=== PATIENT | female | born 1945 | race Two or more races ===

== ENCOUNTER 2021-10-31 11:47 | Outpatient (REF) | payer MEDICARE, SELFPAY ==
[2021-10-31 12:13] LABS: MANUAL DIFF FLAG NO
[2021-10-31 12:19] LABS: Basophils Percent Auto 0.5 % (0-2); Eosinophils Percent Auto 0.1 % (0-4); Hematocrit 38.3 % (37.0-47.0); Hemoglobin 12.9 g/dl (12.0-16.0); Imm Gran Abs Auto 0.03 X10*3/uL (0.00-0.03); Imm Gran Pct Auto 0.4 % (0.0-0.4); Lymphocytes Absolute Auto 0.7 X10*3/uL (1.2-4.9); Lymphocytes Percent Auto 8.2 % (20-40); Mean Corpuscular HGB Conc 33.7 g/dl (31.0-35.0); Mean Corpuscular Hemoglobin 32.3 pg (27.0-33.0); Mean Corpuscular Volume 95.8 fL (80.0-98.0); Mean Platelet Volume 10.2 fL (9.4-12.3); Monocytes Absolute Auto 0.6 X10*3/uL (0.1-1.2); Monocytes Percent Auto 7.2 % (2-11); Neutrophils Absolute Auto 6.7 x10*3/uL (2.0-8.3); Neutrophils Percent Auto 83.6 % (45-73); Platelet Count 266 X10*3/uL (160-400); Red Cell Distribution Width 11.9 % (11.0-16.0); White Blood Count 8.1 X10*3/uL (4.8-10.8)
[2021-10-31 13:13] LABS: Alanine Aminotransferase 10 U/L (0-31); Albumin Level 4.3 g/dL (3.5-5.0); Alkaline Phosphatase 87 U/L (39-117); Anion Gap 12 (12-20); Aspartate Amino Transferase 19 U/L (5-31); Bilirubin Total 0.9 mg/dL (0.0-1.0); Blood Urea Nitrogen 27 mg/dL (9-16); Calcium 10.4 mg/dL (8.4-10.2); Carbon Dioxide 26 mmol/L (22-29); Chloride 106 mmol/L (96-108); Cholesterol 127 mg/dL; Estimated Glomerular Filt Rate > 60; Glucose Random 97 mg/dL (60-115); HDL Cholesterol 46 mg/dL; LDL Cholesterol Calculated 67 mg/dl; Potassium 4.3 mmol/L (3.3-5.1); Sodium 140 mmol/L (135-145); Total Protein 7.3 g/dL (6.5-8.0); Triglycerides 70 mg/dL
[2021-10-31 13:40] LABS: Thyroid Stimulating Hormone 0.78 uIU/mL (0.32-4.0)
== END 2021-10-31 11:48 | disposition home or self-care (01) ==
LOC: HO.LAB 11:47
PROVIDERS: PCP Internal Medicine; Visit Provider Internal Medicine
DX: E78.00 Pure hypercholesterolemia, unspecified (principal); F03.91 Unspecified dementia, unspecified severity, with behavioral disturbance; I10 Essential (primary) hypertension; M54.50 Low back pain, unspecified
CPT/HCPCS: 36415; 80053; 80061; 84443; 85025

== ENCOUNTER 2022-01-09 08:59 | Outpatient (REF) | payer MEDICARE, MEDICAID, SELFPAY ==
--- NOTE | ~2022-01-09 | US_ITS ---
EXAMINATION: US ABDOMEN COMPLETE CLINICAL INFORMATION: Right upper quadrant pain. Rule out cholecystitis. COMPARISON: None TECHNIQUE: Real-time imaging of the abdominal viscera. FINDINGS: PANCREAS: The pancreas is homogeneous in echotexture and normal size. The pancreatic duct is slightly prominent measuring 0.3 cm. ABDOMINAL AORTA: Mild atherosclerotic calcified plaques are seen along the abdominal aorta without aneurysmal dilatation. INFERIOR VENA CAVA: Visualized portions are normal. LIVER: The liver is normal in size. The liver contour is normal. Parenchymal echogenicity is heterogeneous. No focal hepatic lesion. There is no intrahepatic biliary duct dilatation seen. GALLBLADDER: Normal. The gallbladder is physiologically distended without evidence of stones, sludge, polyps, wall thickening or pericholecystic fluid. COMMON BILE DUCT: Normal in caliber measuring 0.4 cm in diameter. RIGHT KIDNEY: Normal. No hydronephrosis. No renal calculi or focal parenchymal lesions. The kidney measures 8.8 cm in maximum dimension. LEFT KIDNEY: There is an anechoic cyst in the upper pole measuring 1.7 x 1.6 x 1.3 cm. No hydronephrosis or renal calculi. The kidney measures 9.5 cm in maximum dimension. SPLEEN: Normal. The spleen measures 6.9 cm in maximum dimension. FREE FLUID: None. US/US abdomen complete IMPRESSION: Mild hepatic steatosis without focal lesion. Anechoic cyst upper pole left kidney. The rest of the abdominal ultrasound is unremarkable.
== END 2022-01-09 09:00 | disposition home or self-care (01) ==
LOC: HO.US 08:59
PROVIDERS: Visit Provider Internal Medicine
DX: K81.9 Cholecystitis, unspecified (principal)
CPT/HCPCS: 76700

== ENCOUNTER 2022-06-18 09:54 | Outpatient (REF) | payer MEDICARE, SELFPAY ==
[2022-06-18 11:42] LABS: Vitamin D 25-OH Total 37.7 ng/mL (>30)
[2022-06-21 17:47] LABS: PTHI 98 pg/mL (16-77)
== END 2022-06-18 09:55 | disposition home or self-care (01) ==
LOC: HO.10HDL 09:54
PROVIDERS: Visit Provider Internal Medicine
DX: E83.52 Hypercalcemia (principal); I10 Essential (primary) hypertension; M54.50 Low back pain, unspecified
CPT/HCPCS: 36415; 82306; 82310; 83970

== ENCOUNTER 2023-01-21 10:04 | Outpatient (REF) | payer MEDICARE, MEDICAID, SELFPAY ==
[2023-01-21 10:20] LABS: MANUAL DIFF FLAG NO
[2023-01-21 10:44] LABS: Basophils Absolute Auto 0.1 X10*3/uL (0.0-0.2); Basophils Percent Auto 0.7 % (0-2); Eosinophils Absolute Auto 0.3 X10*3/uL (0.0-0.4); Eosinophils Percent Auto 3.9 % (0-4); Hematocrit 38.8 % (37.0-47.0); Hemoglobin 12.8 g/dl (12.0-16.0); Imm Gran Abs Auto 0.01 X10*3/uL (0.00-0.03); Imm Gran Pct Auto 0.1 % (0.0-0.4); Lymphocytes Percent Auto 28.6 % (20-40); Mean Corpuscular Hemoglobin 30.6 pg (27.0-33.0); Mean Corpuscular Volume 92.8 fL (80.0-98.0); Mean Platelet Volume 10.7 fL (9.4-12.3); Monocytes Absolute Auto 0.6 X10*3/uL (0.1-1.2); Neutrophils Percent Auto 57.7 % (45-73); Platelet Count 303 X10*3/uL (160-400); Red Blood Count 4.18 X10*6/uL (4.20-5.50); Red Cell Distribution Width 11.9 % (11.0-16.0)
[2023-01-21 11:13] LABS: Alanine Aminotransferase 11 U/L (0-31); Albumin Level 4.2 g/dL (3.5-5.0); Alkaline Phosphatase 118 U/L (39-117); Anion Gap 12 (12-20); Aspartate Amino Transferase 17 U/L (5-31); Bilirubin Total 0.5 mg/dL (0.0-1.0); Blood Urea Nitrogen 25 mg/dL (9-16); Calcium 9.9 mg/dL (8.4-10.2); Carbon Dioxide 27 mmol/L (22-29); Chloride 109 mmol/L (96-108); Cholesterol 117 mg/dL; Estimated Glomerular Filt Rate 43; Glucose Random 88 mg/dL (60-115); HDL Cholesterol 39 mg/dL; LDL Cholesterol Calculated 64 mg/dl; Potassium 3.9 mmol/L (3.3-5.1); Sodium 144 mmol/L (135-145); Total Protein 7.6 g/dL (6.5-8.0); Triglycerides 71 mg/dL
[2023-01-21 11:32] LABS: Thyroid Stimulating Hormone 1.36 uIU/mL (0.32-4.0)
[2023-01-23 18:58] LABS: PTHI 94 pg/mL (16-77)
== END 2023-01-21 10:05 | disposition home or self-care (01) ==
LOC: HO.LAB 10:04
PROVIDERS: PCP Internal Medicine; Visit Provider Internal Medicine
DX: E83.52 Hypercalcemia (principal); F02.80 Dementia in other diseases classified elsewhere, unspecified severity, without behavioral disturbance, psychotic disturbance, mood disturbance, and anxiety; I10 Essential (primary) hypertension; M54.50 Low back pain, unspecified
CPT/HCPCS: 36415; 80053; 80061; 83970; 84443; 85025

== ENCOUNTER → 2023-02-21 13:15 | Outpatient (BNV) | payer MEDICARE, MEDICAID, SELFPAY | PROVIDERS: PCP Internal Medicine; Visit Provider Radiology Diagnostic Radiology | DX: Z12.31 Encounter for screening mammogram for malignant neoplasm of breast (principal) | CPT/HCPCS: 77063; 77067 ==

== ENCOUNTER 2023-02-21 13:25 | Outpatient (REF) | payer MEDICARE, MEDICAID, SELFPAY ==
--- NOTE | ~2023-02-21 | MM_ITS ---
EXAMINATION: MM SCREENING DIGITAL BREAST TOMOSYNTHESIS, BILATERAL CLINICAL INFORMATION: Screening. Asymptomatic. COMPARISON: Mammography: This is a baseline study. TECHNIQUE: Digital breast tomosynthesis is performed in both the craniocaudal and mediolateral oblique views along with computer-aided detection (CAD). Synthesized 2D images are generated from the tomosynthesis. FINDINGS: The breasts are almost entirely fatty (ACR BI-RADS breast composition Category a). There are no significant masses, abnormal calcifications, or other abnormalities. MM/MM tomosynthesis screening BI IMPRESSION: No mammographic evidence of malignancy. ASSESSMENT: BI-RADS BI-RADS 1 - Negative RECOMMENDATION: Routine annual mammography screening. 1 year F/U This examination should not preclude the clinical evaluation of a suspicious palpable abnormality. This patient's information was entered into a reminder system with a target due date for their next mammogram.
== END 2023-02-21 13:26 | disposition home or self-care (01) ==
LOC: HO.MAMMO 13:25
PROVIDERS: PCP Internal Medicine; Visit Provider Internal Medicine
DX: Z12.31 Encounter for screening mammogram for malignant neoplasm of breast (principal)
CPT/HCPCS: 77063; 77067

== ENCOUNTER 2023-10-17 11:15 | Outpatient (REF) | payer MEDICARE, MEDICAID, SELFPAY ==
[2023-10-17 12:24] LABS: Alanine Aminotransferase 14 U/L (0-31); Albumin Level 4.4 g/dL (3.5-5.0); Alkaline Phosphatase 111 U/L (39-117); Anion Gap 9 (12-20); Aspartate Amino Transferase 19 U/L (5-31); Bilirubin Total 0.5 mg/dL (0.0-1.0); Blood Urea Nitrogen 22 mg/dL (9-16); Calcium 10.4 mg/dL (8.4-10.2); Carbon Dioxide 27 mmol/L (22-29); Chloride 110 mmol/L (96-108); Estimated Glomerular Filt Rate 54; Glucose Random 94 mg/dL (60-115); Potassium 3.9 mmol/L (3.3-5.1); Sodium 142 mmol/L (135-145); Total Protein 7.7 g/dL (6.5-8.0)
[2023-10-17 12:41] LABS: Vitamin D 25-OH Total 39.5 ng/mL (>30)
[2023-10-17 17:20] LABS: Parathyroid Hormone Intact 88.5 pg/mL (8.7-77.1)
== END 2023-10-17 11:16 | disposition home or self-care (01) ==
LOC: HO.LAB 11:15
PROVIDERS: PCP Internal Medicine; Visit Provider Internal Medicine
DX: E78.00 Pure hypercholesterolemia, unspecified (principal); I12.9 Hypertensive chronic kidney disease with stage 1 through stage 4 chronic kidney disease, or unspecified chronic kidney disease; N18.2 Chronic kidney disease, stage 2 (mild); R29.6 Repeated falls
CPT/HCPCS: 36415; 80053; 82306; 83970

== ENCOUNTER 2023-11-28 10:58 | Outpatient (AMB) | payer MEDICARE, MEDICAID, SELFPAY ==
--- NOTE | 2023-11-28 11:15 | MHC.OFFVIS ---
Vital Signs 11/28/23 11:27 Height 5 ft 1 in Weight 138 lb BMI 26.1 BP 124/80 Intake Visit Reasons: 2nd degree uterine prolapse Mainframe Applications Developer Required: No Information Interpreted: non-clinical & clinical Supervisor Microbiology Technologists: Supervisor Microbiology Technologists Present (Tamika CLEARY) Accompanied by: Daughter Allergies shellfish derived Allergy (Intermediate, Verified 11/28/23 11:29) Anaphylaxis Post menopausal: Yes HPI Comments Details: Presenting complaining of a bulge per vagina over the last many years , no urine incontinence. [facility] Medical History Hyperlipidemia HTN (hypertension) Dementia Surgical History History of intestinal surgery H/O breast biopsy History of throat surgery Family History Father HTN (hypertension) Prostate cancer Mother Diabetes Breast cancer Sister Tongue cancer Social History Household Members: Family Household Members Other:: daughter Housing: House Alcohol intake: never Patient Tobacco Use Status: Former Tobacco user Tobacco use type: Cigarette Years Smoked: 30 Current occupational status: retired Sexual orientation: Straight/Heterosexual Gender identity: Female Female Reproductive History Menstrual Menopause type: natural Total pregnancies: 3 Full term: 3 Number of Living Children: 3 Review of Systems Const All systems reviewed & are unremarkable except as noted in HPI and below Physical Exam Vital Signs: Last Vital Signs BP 124/80 11/28/23 11:27 BMI result Body Mass Index 26.1 General: Yes no CVA tenderness External Female Exam: normal external appearance and normal appearance of the urethra Speculum Exam - Vagina: normal appearance of the vagina, normal palpation, no lesions and no masses Speculum Exam - Cervix: normal appearance of the cervix, normal palpation, no lesions, no masses, nontender and Other cervical findings present (Moderate uterine prolapse) Bimanual exam- vagina & uterus: normal bimanual exam, normal palpation, uterine size normal, normal palpation, uterine shape normal, No Cervical tenderness present, non-tender and other (Moderate uterine prolapse) Bimanual Exam- Adnexa, other: normal adnexae Back/Spine/Pelvis Back: no CVA tenderness Assessment & Plan Assessment & Plan (1) Uterine prolapse: Code(s): N81.4 - Uterovaginal prolapse, unspecified Category: Medical Plan: Discussed with the patient the finding on pelvic exam showing moderate uterine prolapse. Options of treatment discussed with the patient included expectant management, pessary or surgical treatment. All questions answered, the patient verbalized understanding and decided to go ahead with pessary trial. Will schedule an appointment for pessary trial within few days. Coding Level of Care Code New Pt Level 3 (29669) Diagnoses Uterine prolapse N81.4
[2023-11-28 11:27] VITALS: BP 124/80; BMI 26.1
== END 2023-11-28 13:07 | disposition home or self-care (01) ==
PROVIDERS: PCP Internal Medicine; Visit Provider Obstetrics & Gynecology
DX: N81.4 Uterovaginal prolapse, unspecified (principal)
CPT/HCPCS: 99203

== ENCOUNTER → 2023-11-28 10:58 | Outpatient (BNVA) | payer MEDICARE, MEDICAID, SELFPAY | PROVIDERS: PCP Internal Medicine; Visit Provider Obstetrics & Gynecology | DX: N81.4 Uterovaginal prolapse, unspecified (principal) | CPT/HCPCS: 99202 ==

== ENCOUNTER 2023-12-02 10:04 | Outpatient (AMB) | payer MEDICARE, MEDICAID, SELFPAY ==
[2023-12-02 10:31] VITALS: BP 112/64; BMI 26.1
--- NOTE | 2023-12-02 10:31 | A.OFFVIS_ITS ---
Vital Signs 12/02/23 10:31 Height 5 ft 1 in Weight 138 lb BMI 26.1 BP 112/64 Blood Pressure Location Lt brachial Position Sitting Intake Visit Reasons: pessary Allergies shellfish derived Allergy (Intermediate, Verified 12/02/23 10:34) Anaphylaxis HPI Comments Details: Presenting for pessary trial [facility] Medical History Hyperlipidemia HTN (hypertension) Dementia Surgical History History of intestinal surgery H/O breast biopsy History of throat surgery Family History Father HTN (hypertension) Prostate cancer Mother Diabetes Breast cancer Sister Tongue cancer Social History Household Members: Family Household Members Other:: daughter Housing: House Alcohol intake: never Patient Tobacco Use Status: Former Tobacco user Tobacco use type: Cigarette Years Smoked: 30 Current occupational status: retired Sexual orientation: Straight/Heterosexual Gender identity: Female Physical Exam Vital Signs: Last Vital Signs BP 112/64 12/02/23 10:31 BMI result Body Mass Index 26.1 External Female Exam: normal external appearance Speculum Exam - Vagina: normal appearance of the vagina Speculum Exam - Cervix: normal appearance of the cervix and Other cervical findings present (Moderate uterine prolapse) Bimanual exam- vagina & uterus: normal bimanual exam Assessment & Plan Assessment & Plan (1) Uterine prolapse: Code(s): N81.4 - Uterovaginal prolapse, unspecified Category: Medical Plan: Ring pessary #3 inserted in the vagina. Afterwards the pt did not feel it in, and did not have any pain or pressure. After Valsalva x 3 ( lying down, sitting and standing up ) pessary stayed in and pt was able to void freely with the pessary in the vagina. At the end the patient was instructed to come back in 24 hours, then in 3 days and then in 1 week for a f/u visits. Meanwhile the patient was instructed to call if vaginal pain, pressure or discharge occurs. Vaginal Trimosan Gel is to be used x2-3 x/week. The patient verbalized understanding and all questions were answered. Coding Level of Care Code Est Pt Level 3 (42479) Diagnoses Uterine prolapse N81.4
== END 2023-12-02 11:17 | disposition home or self-care (01) ==
LOC: HO.HWS 10:05
PROVIDERS: PCP Internal Medicine; Visit Provider Obstetrics & Gynecology
DX: N81.4 Uterovaginal prolapse, unspecified (principal)
CPT/HCPCS: 99213

== ENCOUNTER → 2023-12-02 10:04 | Outpatient (BNVA) | payer MEDICARE, MEDICAID, SELFPAY | PROVIDERS: PCP Internal Medicine; Visit Provider Obstetrics & Gynecology | DX: N81.4 Uterovaginal prolapse, unspecified (principal) | CPT/HCPCS: 99212 ==

== ENCOUNTER 2023-12-03 09:20 | Outpatient (AMB) | payer MEDICARE, MEDICAID, SELFPAY ==
--- NOTE | 2023-12-03 09:35 | MHC.OFFVIS ---
Vital Signs 12/03/23 09:38 Height 5 ft 1 in Weight 136 lb 10.986 oz BMI 25.8 Intake Visit Reasons: Pessary check Agricultural Produce Washer Required: No Information Interpreted: non-clinical & clinical Programming Coordinator: Programming Coordinator Present (Tamika CLEARY) Accompanied by: Daughter Allergies shellfish derived Allergy (Intermediate, Verified 12/03/23 09:38) Anaphylaxis Post menopausal: Yes HPI Comments Details: The patient is presenting for pessary check no complaints no vaginal pain, discharge or pressure. The pessary did not slip out. [facility] Medical History Hyperlipidemia HTN (hypertension) Dementia Surgical History History of intestinal surgery H/O breast biopsy History of throat surgery Family History Father HTN (hypertension) Prostate cancer Mother Diabetes Breast cancer Sister Tongue cancer Social History Household Members: Family Household Members Other:: daughter Housing: House Alcohol intake: never Patient Tobacco Use Status: Former Tobacco user Tobacco use type: Cigarette Years Smoked: 30 Current occupational status: retired Sexual orientation: Straight/Heterosexual Gender identity: Female Review of Systems Const All systems reviewed & are unremarkable except as noted in HPI and below Physical Exam Vital Signs: BMI result Body Mass Index 25.8 General: Yes no CVA tenderness External Female Exam: normal external appearance and normal appearance of the urethra Speculum Exam - Vagina: normal appearance of the vagina, normal palpation, no lesions, no masses and other (No evidence of abrasion erythema or any other abnormalities) Speculum Exam - Cervix: normal appearance of the cervix, normal palpation, no lesions, no masses and nontender Bimanual exam- vagina & uterus: normal bimanual exam, normal palpation, uterine size normal, normal palpation, uterine shape normal, No Cervical tenderness present, non-tender and other (Uterine prolapse) Bimanual Exam- Adnexa, other: normal adnexae Back/Spine/Pelvis Back: no CVA tenderness Assessment & Plan Assessment & Plan (1) Pessary maintenance: Code(s): Z46.89 - Encounter for fitting and adjustment of other specified devices Category: Medical Plan: Pessary was taken out; pelvic exam revealed normal findings no evidence of erythema, pressure or any other abnormal finding. The pessary was replaced back in, it did not slip out after Valsalva in the supine, sitting, and standing position. Pt was instructed to call if vaginal pressure, pain or discharge occurs otherwise and to keep using Trimosan Gel 2-3 x/week. Follow-up in 3 days for another pessary check Coding Level of Care Code Est Pt Level 3 (18196) Diagnoses Pessary maintenance Z46.89
[2023-12-03 09:38] VITALS: BMI 25.8
== END 2023-12-03 09:57 | disposition home or self-care (01) ==
LOC: HO.HWS 09:20
PROVIDERS: PCP Internal Medicine; Visit Provider Obstetrics & Gynecology
DX: Z46.89 Encounter for fitting and adjustment of other specified devices (principal)
CPT/HCPCS: 99213

== ENCOUNTER → 2023-12-03 09:20 | Outpatient (BNVA) | payer MEDICARE, MEDICAID, SELFPAY | PROVIDERS: PCP Internal Medicine; Visit Provider Obstetrics & Gynecology | DX: Z46.89 Encounter for fitting and adjustment of other specified devices (principal) | CPT/HCPCS: 99212 ==

== ENCOUNTER 2023-12-06 07:48 | Outpatient (AMB) | payer MEDICARE, MEDICAID, SELFPAY ==
--- NOTE | 2023-12-06 08:14 | MHC.OFFVIS ---
Vital Signs 12/06/23 08:17 Height 5 ft 1 in Weight 136 lb 10.986 oz BMI 25.8 Intake Visit Reasons: pessary check per Pony Roll Finisher Required: No Information Interpreted: non-clinical & clinical Loan Workout Officer: Loan Workout Officer Present (Tamika Devon CLEARY) Accompanied by: Self / Same As Patient Allergies shellfish derived Allergy (Intermediate, Verified 12/06/23 08:17) Anaphylaxis Post menopausal: Yes HPI Comments Details: The patient is presenting for pessary check no complaints no vaginal pain, discharge or pressure. The pessary did not slip out. [facility] Medical History Hyperlipidemia HTN (hypertension) Dementia Surgical History History of intestinal surgery H/O breast biopsy History of throat surgery Family History Father HTN (hypertension) Prostate cancer Mother Diabetes Breast cancer Sister Tongue cancer Social History Household Members: Family Household Members Other:: daughter Housing: House Alcohol intake: never Patient Tobacco Use Status: Former Tobacco user Tobacco use type: Cigarette Years Smoked: 30 Current occupational status: retired Sexual orientation: Straight/Heterosexual Gender identity: Female Review of Systems Const All systems reviewed & are unremarkable except as noted in HPI and below Physical Exam Vital Signs: BMI result Body Mass Index 25.8 General: Yes no CVA tenderness External Female Exam: normal external appearance and normal appearance of the urethra Speculum Exam - Vagina: normal appearance of the vagina, normal palpation, no lesions, no masses and other (No erythema or evidence of abrasion or any other abnormality) Speculum Exam - Cervix: normal appearance of the cervix, normal palpation, no lesions, no masses and nontender Bimanual exam- vagina & uterus: normal bimanual exam, normal palpation, uterine size normal, normal palpation, uterine shape normal, No Cervical tenderness present and non-tender Bimanual Exam- Adnexa, other: normal adnexae Back/Spine/Pelvis Back: no CVA tenderness Assessment & Plan Assessment & Plan (1) Pessary maintenance: Code(s): Z46.89 - Encounter for fitting and adjustment of other specified devices Category: Medical Plan: Pessary was taken out; pelvic exam revealed normal findings no evidence of erythema, pressure or any other abnormal finding. The pessary was replaced back in, it did not slip out after Valsalva in the supine, sitting, and standing position. Pt was instructed to call if vaginal pressure, pain or discharge occurs otherwise and to keep using Trimosan Gel 2-3 x/week. Follow-up in 1 week for another pessary check Coding Level of Care Code Est Pt Level 3 (04171) Diagnoses Pessary maintenance Z46.89
[2023-12-06 08:17] VITALS: BMI 25.8
== END 2023-12-06 09:01 | disposition home or self-care (01) ==
LOC: HO.HWS 07:48
PROVIDERS: PCP Internal Medicine; Visit Provider Obstetrics & Gynecology
DX: Z46.89 Encounter for fitting and adjustment of other specified devices (principal)
CPT/HCPCS: 99213

== ENCOUNTER → 2023-12-06 07:48 | Outpatient (BNVA) | payer MEDICARE, MEDICAID, SELFPAY | PROVIDERS: PCP Internal Medicine; Visit Provider Obstetrics & Gynecology | DX: Z46.89 Encounter for fitting and adjustment of other specified devices (principal) | CPT/HCPCS: 99212 ==

== ENCOUNTER 2024-01-16 15:53 | Outpatient (REF) | payer MEDICARE, MEDICAID, SELFPAY ==
[2024-01-16 17:34] LABS: Phosphorus 3.4 mg/dL (2.7-4.5)
== END 2024-01-16 15:54 | disposition home or self-care (01) ==
LOC: HO.LAB 15:53
PROVIDERS: PCP Internal Medicine; Visit Provider Internal Medicine
DX: E21.0 Primary hyperparathyroidism (principal); F03.911 Unspecified dementia, unspecified severity, with agitation; J44.9 Chronic obstructive pulmonary disease, unspecified; M54.50 Low back pain, unspecified; N81.2 Incomplete uterovaginal prolapse; R32 Unspecified urinary incontinence
CPT/HCPCS: 36415; 82310; 84100; 87086; 87088; 87186

== ENCOUNTER 2024-05-13 09:14 | Outpatient (AMB) | payer MEDICARE, MEDICAID, SELFPAY ==
--- NOTE | 2024-05-13 09:16 | MHC.OFFVIS ---
Vital Signs 05/13/24 09:24 Height 5 ft 1 in Weight 136 lb 10.986 oz BMI 25.8 BP 120/84 Intake Visit Reasons: pessary check Engineering Aide Required: No Information Interpreted: non-clinical & clinical Alterations Workroom Clerk: Alterations Workroom Clerk Present (Tamika CLEARY) Accompanied by: Daughter Allergies shellfish derived Allergy (Intermediate, Verified 05/13/24 09:25) Anaphylaxis Post menopausal: Yes HPI Comments Details: The patient is presenting for pessary check no complaints no vaginal pain, discharge or pressure. The pessary did not slip out. [facility] Medical History Hyperlipidemia HTN (hypertension) Dementia Surgical History History of intestinal surgery H/O breast biopsy History of throat surgery Family History Father HTN (hypertension) Prostate cancer Mother Diabetes Breast cancer Sister Tongue cancer Social History Household Members: Family Household Members Other:: daughter Housing: House Alcohol intake: never Patient Tobacco Use Status: Former Tobacco user Tobacco use type: Cigarette Years Smoked: 30 Current occupational status: retired Sexual orientation: Straight/Heterosexual Gender identity: Female Review of Systems Const All systems reviewed & are unremarkable except as noted in HPI and below Physical Exam Vital Signs: Last Vital Signs BP 120/84 05/13/24 09:24 BMI result Body Mass Index 25.8 General: Yes no CVA tenderness External Female Exam: normal external appearance and normal appearance of the urethra Speculum Exam - Vagina: normal appearance of the vagina, normal palpation, no lesions and no masses Speculum Exam - Cervix: normal appearance of the cervix, normal palpation, no lesions, no masses and nontender Bimanual exam- vagina & uterus: normal bimanual exam, normal palpation, uterine size normal, normal palpation, uterine shape normal, No Cervical tenderness present and non-tender Bimanual Exam- Adnexa, other: normal adnexae Back/Spine/Pelvis Back: no CVA tenderness Assessment & Plan Assessment & Plan (1) Pessary maintenance: Code(s): Z46.89 - Encounter for fitting and adjustment of other specified devices Category: Medical Plan: Pessary was taken out; pelvic exam revealed normal findings no evidence of erythema, pressure or any other abnormal finding. The pessary was replaced back in, it did not slip out after Valsalva in the supine, sitting, and standing position. Pt was instructed to call if vaginal pressure, pain or discharge occurs otherwise and to keep using Trimosan Gel 2-3 x/week. Follow-up in 3 months for another pessary check Coding Level of Care Code Est Pt Level 3 (18651) Diagnoses Pessary maintenance Z46.89
[2024-05-13 09:24] VITALS: BP 120/84; BMI 25.8
== END 2024-05-13 11:32 | disposition home or self-care (01) ==
PROVIDERS: PCP Internal Medicine; Visit Provider Obstetrics & Gynecology
DX: Z46.89 Encounter for fitting and adjustment of other specified devices (principal)
CPT/HCPCS: 99213

== ENCOUNTER → 2024-05-13 09:14 | Outpatient (BNVA) | payer MEDICARE, MEDICAID, SELFPAY | PROVIDERS: PCP Internal Medicine; Visit Provider Obstetrics & Gynecology | DX: Z46.89 Encounter for fitting and adjustment of other specified devices (principal) | CPT/HCPCS: 99212 ==

== ENCOUNTER 2024-08-19 10:49 | Outpatient (AMB) | payer MEDICARE, MEDICAID, SELFPAY ==
--- NOTE | 2024-08-19 10:53 | A.OFFVIS_ITS ---
Vital Signs 08/19/24 11:03 Height 5 ft 1 in Weight 136 lb BMI 25.7 Intake Visit Reasons: pessary check Industrial Psychology Teacher Required: No Information Interpreted: non-clinical & clinical Wool And Pelt Grader: Wool And Pelt Grader Present (Tamika CLEARY) Accompanied by: Daughter Allergies shellfish derived Allergy (Intermediate, Verified 08/19/24 11:04) Anaphylaxis Post menopausal: Yes HPI Comments Details: The patient is presenting for pessary check no complaints no vaginal pain, discharge or pressure. The pessary did not slip out. [facility] Medical History Hyperlipidemia HTN (hypertension) Dementia Surgical History History of intestinal surgery H/O breast biopsy History of throat surgery Family History Father HTN (hypertension) Prostate cancer Mother Diabetes Breast cancer Sister Tongue cancer Social History Household Members: Family Household Members Other:: daughter Housing: House Alcohol intake: never Patient Tobacco Use Status: Former Tobacco user Tobacco use type: Cigarette Years Smoked: 30 Current occupational status: retired Sexual orientation: Straight/Heterosexual Gender identity: Female Review of Systems Const All systems reviewed & are unremarkable except as noted in HPI and below Physical Exam General: Yes no CVA tenderness External Female Exam: normal external appearance and normal appearance of the urethra Speculum Exam - Vagina: normal appearance of the vagina, normal palpation, no masses and other (Pessary taken out, Left vaginal abrasion was identified no erythema) Speculum Exam - Cervix: normal appearance of the cervix, normal palpation, no lesions, no masses and nontender Bimanual exam- vagina & uterus: normal bimanual exam, normal palpation, uterine size normal, normal palpation, uterine shape normal, No Cervical tenderness present and non-tender Bimanual Exam- Adnexa, other: normal adnexae Back/Spine/Pelvis Back: no CVA tenderness Assessment & Plan Assessment & Plan (1) Vaginal abrasion: Code(s): S30.814A - Abrasion of vagina and vulva, initial encounter Category: Medical Plan: Pessary was taken out; pelvic exam revealed left vaginal wall abrasion no evidence of erythema. The pessary was kept out. Pt was instructed to call if temperature above 100.4, vaginal pressure, pain or discharge occurs otherwise and to keep using Trimosan Gel 2-3 x/week. Follow-up in 6 weeks for re- evaluation. Coding Level of Care Code Est Pt Level 3 (77793) Diagnoses Vaginal abrasion S30.814A
[2024-08-19 11:03] VITALS: BMI 25.7
--- OUTSIDE RECORDS SUMMARY | 2024-08-19 11:34 | XMS_ITS | Clinical Summary ---
Author Organization [facility] ity Address [address] [place] [address] Care Team Providers Care Cvor Nurse Name Role Phone Glendy Mcmahon MD Primary Care Provider [phone] Social History Tobacco Use Types Packs/Day Years Used Date Smoking Tobacco: Never Assessed Comments Unknown Sex and Gender Information Value Date Recorded Sex Assigned at Not on file Legal Sex Female 4:31 PM EST Gender Identity Not on file Sexual Orientation Not on file Plan of Treatment Health Maintenance Due Date Last Done Comments DTaP,Tdap,and Td Vaccines (1 - Tdap) 1963 Pneumococcal Vaccine: 50+ Ye ars (1 of 1 - PCV) 1994 Zoster Vaccines (1 of 2) 1994 RSV Immunization Patients 60 + Years Old (1 - 1-dose 75+ series) 2019 Depression Screening 05/30/2022 Falls Risk Assessment 05/30/2022 Osteoporosis Screening (Bone Density Screening) 05/30/2022 Social Influencers of Health Screening 05/30/2022 COVID-19 Vaccine (2023-2 5 season) 2024 Influenza Vaccine (#1) 2024 HIB Vaccines Aged Out No longer eligi ble based on patient's age to complete this topic HPV Vaccines Aged Out No longer eligi ble based on patient's age to complete this topic Hepatitis A Vaccines Aged Out No long er eligible based on patient's age to complete this topic Hepatitis B Vaccines Aged Out No long er eligible based on patient's age to complete this topic IPV Vaccines Aged Out No longer eligi ble based on patient's age to complete this topic MMR Vaccines Aged Out No longer eligi ble based on patient's age to complete this topic Meningococcal ACWY Vaccine Aged Out N o longer eligible based on patient's age to complete this topic Meningococcal B Vacine Aged Out No lo nger eligible based on patient's age to complete this topic RSV Immunization Patients Un jeri 20 months Aged Out No longer eligible b ased on patient's age to complete this topic Varicella Vaccines Aged Out No longer eligible based on patient's age to complete this topic Advance Directives Documents on File Type Date Recorded Patient Non Destructive Evaluation Specialist Expl anation Health Care Decision (hx) 08/28/2019 AD ROSENBAUM DIRECTIVE Health Care Decision (hx) 08/28/2019 AD ROSENBAUM DIRECTIVE Health Care Decision (hx) 08/28/2019 AD ROSENBAUM DIRECTIVE Health Care Decision (hx) 08/28/2019 AD ROSENBAUM DIRECTIVE Health Care Decision (hx) 08/28/2019 AD ROSENBAUM DIRECTIVE Care Teams Cvor Nurse Relationship Specialty Start Date End Date Glendy Mcmahon MD [address] [place] [address] Dr Marie, [place] [id number] PCP - General 11/12/22
== END 2024-08-19 11:33 | disposition home or self-care (01) ==
LOC: HO.HWS 10:49
PROVIDERS: PCP Internal Medicine; Visit Provider Obstetrics & Gynecology
DX: S30.814A Abrasion of vagina and vulva, initial encounter (principal)
CPT/HCPCS: 99213

== ENCOUNTER → 2024-08-19 10:49 | Outpatient (BNVA) | payer MEDICARE, MEDICAID, SELFPAY | PROVIDERS: PCP Internal Medicine; Visit Provider Obstetrics & Gynecology | DX: S30.814A Abrasion of vagina and vulva, initial encounter (principal); X58.XXXA Exposure to other specified factors, initial encounter; Y93.9 Activity, unspecified; Y92.9 Unspecified place or not applicable; Y99.9 Unspecified external cause status; Z46.89 Encounter for fitting and adjustment of other specified devices | CPT/HCPCS: 99212 ==

== ENCOUNTER 2024-10-02 15:12 | Outpatient (AMB) | payer MEDICARE, MEDICAID, SELFPAY ==
--- NOTE | 2024-10-02 15:31 | MHC.OFFVIS ---
Intake Visit Reasons: pessary check Health Education Assistant Required: No Information Interpreted: non-clinical & clinical Industrial Gas Service Helper: Industrial Gas Service Helper Present (Juliana) Accompanied by: Son Allergies shellfish derived Allergy (Intermediate, Verified 10/02/24 15:34) Anaphylaxis HPI Comments Details: Presenting for follow-up post vaginal abrasion from pessary. Last visit the pessary was taken out. The patient is doing well with no complaints no vaginal bleeding or discharge or pain or any other complaints. [facility] Medical History Hyperlipidemia HTN (hypertension) Dementia Surgical History History of intestinal surgery H/O breast biopsy History of throat surgery Family History Father HTN (hypertension) Prostate cancer Mother Diabetes Breast cancer Sister Tongue cancer Social History Household Members: Family Household Members Other:: daughter Housing: House Alcohol intake: never Patient Tobacco Use Status: Former Tobacco user Tobacco use type: Cigarette Years Smoked: 30 Current occupational status: retired Sexual orientation: Straight/Heterosexual Gender identity: Female Review of Systems Const All systems reviewed & are unremarkable except as noted in HPI and below Physical Exam General: Yes no CVA tenderness External Female Exam: normal external appearance and normal appearance of the urethra Speculum Exam - Vagina: normal appearance of the vagina, normal palpation, no lesions and no masses Speculum Exam - Cervix: normal appearance of the cervix, normal palpation, no lesions, no masses and nontender Bimanual exam- vagina & uterus: normal bimanual exam, normal palpation, uterine size normal, normal palpation, uterine shape normal, No Cervical tenderness present and non-tender Bimanual Exam- Adnexa, other: normal adnexae Back/Spine/Pelvis Back: no CVA tenderness Assessment & Plan Assessment & Plan (1) Vaginal abrasion: Comment: Resolved Code(s): S30.814A - Abrasion of vagina and vulva, initial encounter Category: Medical Plan: Discussed with the patient the vaginal exam finding showing no evidence for abrasion. Offered the patient pessary reinsertion versus expectant management, all pros and cons risks and benefits of each approach were discussed with the patient, the patient decided to proceed with expectant management keeping pessary out. Instructions given the patient to call if vaginal prolapse causes any discomfort. Will proceed with pessary reinsertion. All questions answered, the patient verbalized understanding Coding Level of Care Code Est Pt Level 3 (41192) Diagnoses Vaginal abrasion S30.814A
--- OUTSIDE RECORDS SUMMARY | 2024-10-02 16:31 | XMS_ITS | Clinical Summary ---
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
== END 2024-10-02 16:03 | disposition home or self-care (01) ==
LOC: HO.HWS 15:12
PROVIDERS: PCP Internal Medicine; Visit Provider Obstetrics & Gynecology
DX: S30.814A Abrasion of vagina and vulva, initial encounter (principal)
CPT/HCPCS: 99213

== ENCOUNTER → 2024-10-02 15:12 | Outpatient (BNVA) | payer MEDICARE, MEDICAID, SELFPAY | PROVIDERS: PCP Internal Medicine; Visit Provider Obstetrics & Gynecology | DX: S30.814D Abrasion of vagina and vulva, subsequent encounter (principal) | CPT/HCPCS: 99212 ==

== ENCOUNTER 2024-10-23 09:13 | Outpatient (REF) | payer MEDICARE, MEDICAID, SELFPAY ==
--- OUTSIDE RECORDS SUMMARY | 2024-10-23 09:26 | XMS_ITS | Clinical Summary ---
Author Organization [employer] [facility] ity Address [address] [place] [address] Care Team Providers Care Spray Maker Name Role Phone Glendy Mcmahon MD Primary Care Provider Social History Tobacco Use Types Packs/Day Years [...] Vaccine (2023-2 5 season) 2024 Influenza Vaccine (Season Ended) 2025 HIB Vaccines Aged Out No longer eligi [...] age to complete this topic Meningococcal B Vaccine Aged Out No l onger eligible based on patient's age to complete this topic RSV Immunization Patients Un jeri 20 months Aged Out No longer eligible b ased on patient's age to complete this topic Varicella Vaccines Aged Out No longer eligible based on patient's age to complete this topic Advance Directives Documents on File Type Date Recorded 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
[2024-10-23 10:31] LABS: Parathyroid Hormone Intact 91.4 pg/mL (8.7-77.1)
[2024-10-23 10:40] LABS: Alanine Aminotransferase 24 U/L (0-31); Albumin Level 4.2 g/dL (3.5-5.0); Alkaline Phosphatase 104 U/L (39-117); Anion Gap 8 (12-20); Aspartate Amino Transferase 22 U/L (5-31); Bilirubin Total 0.4 mg/dL (0.0-1.0); Blood Urea Nitrogen 21 mg/dL (9-16); Calcium 10.2 mg/dL (8.4-10.2); Carbon Dioxide 28 mmol/L (22-29); Chloride 108 mmol/L (96-108); Cholesterol 107 mg/dL (<200); Estimated Glomerular Filt Rate 54; Glucose Random 147 mg/dL (60-115); HDL Cholesterol 41 mg/dL (>40); LDL Cholesterol Calculated 41 mg/dL (<100); Potassium 3.4 mmol/L (3.3-5.1); Sodium 141 mmol/L (135-145); Total Protein 7.2 g/dL (6.5-8.0); Triglycerides 126 mg/dL (<150)
[2024-10-23 10:56] LABS: Folate 7.9 ng/mL (> or = 4.0); Vitamin B12 1485 pg/mL (200-900)
[2024-10-23 10:57] LABS: Thyroid Stimulating Hormone 1.96 uIU/mL (0.32-4.0); Vitamin D 25-OH Total 31.3 ng/mL (>30)
== END 2024-10-23 09:14 | disposition home or self-care (01) ==
LOC: HO.LAB 09:13
PROVIDERS: PCP Internal Medicine; Visit Provider Internal Medicine
DX: E21.2 Other hyperparathyroidism (principal); E78.00 Pure hypercholesterolemia, unspecified; F02.80 Dementia in other diseases classified elsewhere, unspecified severity, without behavioral disturbance, psychotic disturbance, mood disturbance, and anxiety; F32.9 Major depressive disorder, single episode, unspecified; I10 Essential (primary) hypertension; M54.50 Low back pain, unspecified
CPT/HCPCS: 36415; 80053; 80061; 82306; 82607; 82746; 83970; 84443

== ENCOUNTER 2024-12-29 08:31 | Outpatient (AMB) | payer MEDICARE, MEDICAID, SELFPAY ==
[2024-12-29 08:33] VITALS: BP 140/62; PULSE 63; O2SAT 98; BMI 27.8
--- NOTE | 2024-12-29 08:33 | MHC.OFFVIS ---
Vital Signs 12/29/24 08:33 Height 5 ft 1 in Weight 147 lb 4.301 oz BMI 27.8 BP 140/62 H Blood Pressure Location Lt brachial Position Sitting Pulse 63 Pulse Source Pulse Oximeter Pulse Oximetry (%) 98 Oxygen Delivery Method Room Air Intake Visit Reasons: Hyperparathyroidism Intake Note: New patient present today for Hyperparathyroidism. Senior Mobile Developer Required: No Accompanied by: Daughter Allergies shellfish derived Allergy (Intermediate, Verified 12/29/24 08:40) Anaphylaxis Medication List - Last Reconciled 12/29/24 by Haylee Orellana MD atorvastatin 10 mg PO DAILY yyrnvrczfz-uiwgxedb-cdxudwhoig 160-9-4.8 mcg/actuation (Breztri [employer]) inhalations inhalation cyanocobalamin (vitamin B-12) 1,000 mcg PO DAILY diltiazem HCl CD 240 mg PO DAILY diltiazem HCl ER (DILT-XR) 240 mg PO DAILY donepezil 10 mg PO DAILY memantine 10 mg PO BID pantoprazole 40 mg PO DAILY quetiapine 25 mg PO BEDTIME sennosides (senna) 17.2 mg PO BEDTIME HPI Comments Details: 79-year-old female here today for initial evaluation of elevated PTH level. Here today with daughter Angus . Chart review shows patient has had calcium levels ranging from 9.9to10.4 since 2021. Albumin has been anywhere from 4.2-4.4 corrected calcium would be around 9.5-10.2. These are high normal levels. While her PTH has always has been in the range of 80-90. , most recent labs from 10/23/2024 showed calcium of 10.2, with albumin of 4.2, corrected calcium would be 10, vitamin-D of 31.3, PTH level 91.4. Creatinine 0.99, EGFR 54, EGFR is slightly reduced. Kidney stones: not sure Fractures: none Hasnt has any bone density scans here, had one in [place] some 10 years ago Vitamin D supplements: multivitamin with vitamin D in it but doeant know how much Calcium intake: unclear if any supplements , ensure with milk every morning, cheese : every day, no yogurt no known family history of kidney stones or calcium problesm Has constipation , intermittent abd pain, reports muscle aches and pains has urinary incontinence Physical exam General: sitting comfortably in no acute distress HEENT: normocephalic/atraumatic, moist oral mucosa Neck: supple, symmetrical Cardiac: normal heart sounds Pulm: normal breath sounds B/L, no added breath sounds Abd: not distended, no tenderness Extremities: no edema, no signs of myxedema Laboratory Tests 10/31/21 06/18/22 01/21/23 12:10 10:05 10:17 Sodium Potassium Calcium 10.4 H 10.0 9.9 Phosphorus Albumin 4.3 4.2 25-OH Vitamin D Total PTH Intact 98 H 94 H 10/17/23 01/16/24 10/23/24 11:34 16:11 09:20 Sodium 141 Potassium 3.4 Calcium 10.4 H 10.0 10.2 Phosphorus 3.4 Albumin 4.4 4.2 25-OH Vitamin D Total 31.3 PTH Intact 88.5 H 91.4 H Laboratory Tests 10/23/24 09:20 Creatinine 0.99 Estimated GFR 54 PFSH Medical History Hyperlipidemia HTN (hypertension) Dementia Surgical History History of intestinal surgery H/O breast biopsy History of throat surgery Family History Father HTN (hypertension) Prostate cancer Mother Diabetes Breast cancer Sister Tongue cancer Social History Household Members: Family Household Members Other:: daughter Housing: House Alcohol intake: never Patient Tobacco Use Status: Former Tobacco user Tobacco use type: Cigarette Years Smoked: 30 Current occupational status: retired Sexual orientation: Straight/Heterosexual Gender identity: Female Physical Exam Vital Signs: Last Vital Signs Pulse 63 12/29/24 08:33 BP 140/62 H 12/29/24 08:33 Pulse Ox 98 12/29/24 08:33 Oxygen Delivery Method Room Air 12/29/24 08:33 BMI result Body Mass Index 27.8 Assessment & Plan Assessment & Plan (1) Hyperparathyroidism: Code(s): E21.3 - Hyperparathyroidism, unspecified Category: Medical Plan: 79-year-old female with past medical history significant for hypertension, hyperlipidemia, and Alzheimer's, coming in today for initial evaluation of elevated PTH level. Chart review shows patient has had calcium levels ranging from 9.9to10.4 since 2021. Albumin has been anywhere from 4.2-4.4 corrected calcium would be around 9.5-10.2. These are high normal levels. While her PTH has always has been in the range of 80-90. , most recent labs from 10/23/2024 showed calcium of 10.2, with albumin of 4.2, corrected calcium would be 10, vitamin-D of 31.3, PTH level 91.4. Creatinine 0.99, EGFR 54, EGFR is slightly reduced. Vitamin-D is just at the borderline of normal, could possibly be mild secondary hyperparathyroidism in the setting of low vitamin-D or calcium intake. She has notes sure of what kind of supplements she is taking and what is the dose, I have asked her to bring her medication bottles to next visit. Her EGFR was also in the 50s, likely has CKD in the setting of longstanding hypertension. No HCTZ use. Could have secondary hyperparathyroidism in the setting of kidney disease. Especially given calcium levels are not overtly abnormal. She could also possibly have underlying mild primary hyperparathyroidism/normocalcemic hyperprathyroidism. She can not do a 24 hour urine evaluation because she is incontinent of her urine, and wears pull-ups, at this time I will just obtain a spot urine calcium and creatinine. We will also get a bone density scan and a renal ultrasound to look for any osteoporosis or kidney stones. There has also been some PTH elevations at our lab with some discrepancy at outside labs, I will have her repeat labs at [facility]. Plan: -ordered calcium, albumin, ionized calcium, creatinine, phosphorus, vitamin-D level, PTH, urine creatinine and calcium to be done at [facility] -ordered bone density scan including forearm -ordered renal ultrasound -follow up in 5-6 weeks to discuss results -bring medication/supplement bottles to next visit Plan I spent 45 minutes in reviewing the record, seeing the patient and documenting in the medical record. Orders: Orders XR DEXA appendicular skeleton Today E21.3 - Hyperparathyroidism, unspecified Calcium Today E21.3 - Hyperparathyroidism, unspecified Calcium, Ionized Today E21.3 - Hyperparathyroidism, unspecified Phosphorus Today E21.3 - Hyperparathyroidism, unspecified Magnesium Today E21.3 - Hyperparathyroidism, unspecified Calcium, Random Urine Today E21.3 - Hyperparathyroidism, unspecified US renal BI Today E21.3 - Hyperparathyroidism, unspecified Albumin Level Today E21.3 - Hyperparathyroidism, unspecified Parathyroid Hormone Intact Today E21.3 - Hyperparathyroidism, unspecified Vitamin D 25-OH Total Today E21.3 - Hyperparathyroidism, unspecified Creatinine Today E21.3 - Hyperparathyroidism, unspecified Creatinine Urine Today E21.3 - Hyperparathyroidism, unspecified Patient Instructions: Do blood work and urine test at [facility] [address] [place] [address] Please make sure they fax over the results to my office Do bone density scan , someone will call you to schedule this Do kidney ultrasound , someone will call you to schedule this Please bring all of her medication and supplement bottles to next visit. Follow up in 5 weeks to discuss results Coding Level of Care Code New Pt Level 4 (57661) Diagnoses Hyperparathyroidism E21.3 Time Spent (min) 45
--- OUTSIDE RECORDS SUMMARY | 2024-12-29 08:38 | XMS_ITS | Data Portability ---
Author Organization [place] [facility] Address [address] [place] [id number] Care Team Providers Care Screen Stretcher Name Role Phone JANKI HEWITT Primary Care Provider Assessment Encounter Date Assessment Date Assessment LastModified by Organization Details LastModified Time 11/09/2022 11/09/2022 Brief Overview: 77 y/o female c/o neck pain and occipital head pain s/p fall out of her bed early this morning. fall was un witnessed pt does not recall how she fell but thinks she hit her head on the wall. no LOC. pt has SALINAS, no nausea, vomiting, dizziness. she denies cp, sob, weakness, numbness. ROM is limited and pain is worse with movements and palpation. Vital Signs: BP 124/78, HR 87, RR 18, T 98.6, O2 98% RA Exam: pleasant 77 y/o female well appearing, alert NAD, lying in bed. C spine: normal appearance. + c spine tenderness, ROM limited due to pain. small area of ecchymosis noted on the top of the head. no lacerations or hematoma. strength is normal and equal bilaterally. DDx considered, with rationale: C spine fracture: considered due to reported injury and tenderness of the c spine. CVA: considered but no one sided weakness, dysarthria. Shingles: considered but no skin rash and reported trauma. arrhythmia: considered but RRR on exam. Results/ work up: n/a Proper Personal Protective Equipment (PPE), including gloves, eye protection and masks were donned and doffed appropriately and all equipment cleaned using approved technique with germicidal disposable wipes prior to and after care of this patient according to [facility]'s infection prevention protocols. [email or web address] Not available 11/09/2022 15:10:52 Plan of Treatment Reminders Order Date Submit Date Provider Last Modified By Organization Details Last Modified Time Details Appointments None record ed. Lab None record ed. Referral None record ed. Procedures None record ed. Surgeries None record ed. Imaging None record ed. Medication Orders None record ed. Patient TargetsNo targets recorded. Patient Instructions Encounter Date Encounter Id Patient Instructions Last Modified By Organization Details Last Modified Time 11/09/2022 [id number] Thank you for yo ur visit with [facility] today. You were evaluated for a head injury today. At this time, you do not appear to have evidence of a serious injury such as bleeding. However, your condition can acid changer the next 24-48 hours. We recommend that you designate a friend or family member to observe you over the next few days to ensure that your condition is progressing normally. Please seek immediate medical attention if you have an increased headache, persistent headache, vomiting, weakness, confusion or visual problems. We recommend that you do not resume contact sports or activities that take coordination or balance such as skiing or riding a bicycle until cleared to do so by your doctor or by a neurologist. If you develop any new or worsening symptoms and need after hours care, please go to nearest ER and/or call 911. If you have additional concerns or develop a change in your condition between 8am-10pm, please call [facility] at [phone] to help navigate your care. Suture Care Discharge Instructions Keep the stitches dry until tomorrow. On the second day, begin washing with soap and water 1-2 times a day, gently removing all scabbed material which can prevent healing. Apply petroleum jelly or Eucerin cream and a non-adherent dressing. Elevate the area to decrease pain and swelling when possible. Tylenol (over the counter) for pain if needed. Minimize sun exposure/use sunblock over the stitches for the first year to decrease scarring. After the stitches have been taken out you may use Mederma, Scar Away (woya-may-ahmnbhg medicines) or similar products over the area to minimize scarring. Scars can take up to a year to mature (2 years for children) and may be red and lumpy initially. Follow up immediately with a medical provider if you have increasing pain, increasing redness, increasing swelling, pus from wound, red streaking, fever, wound reopening, persistent bleeding or any other worrisome symptoms. Have the stitches removed in as advised by your Provider. If you develop any new or worsening symptoms and need after hours care, please go to nearest ER and/or call 911. If you have additional concerns or develop a change in your condition between 8am-10pm, please call [facility] at [phone] to help navigate your care. Thank you for your visit with [facility] today. You were evaluated for a head injury today. At this time, you do not appear to have evidence of a serious injury such as bleeding. However, your condition can acid changer the next 24-48 hours. We recommend that you designate a friend or family member to observe you over the next few days to ensure that your condition is progressing normally. Please seek immediate medical attention if you have an increased headache, persistent headache, vomiting, weakness, confusion or visual problems. We recommend that you do not resume contact sports or activities that take coordination or balance such as skiing or riding a bicycle until cleared to do so by your doctor or by a neurologist. If you develop any new or worsening symptoms and need after hours care, please go to nearest ER and/or call 911. If you have additional concerns or develop a change in your condition between 8am-10pm, please call [facility] at [phone] to help navigate your care. [email or web address] Not available 11/09/2022 15:02:17 Reason for Referral None Reported. Medical Equipment None Reported. Allergies No known drug allergies Medications Name Sig Start Date Stop Date Status Note LastModified by Organization Details LastModified Time diltiazem ER (XR/XT) 240 mg capsule,exte nded release 24 hr, controlled TAKE 1 CAPSULE BY MOUTH EVERY DAY 11/09 completed Not Available Not Available Not Available atorvastatin 10 mg tablet TAKE 1 TABLET BY MOUTH EVERY DAY active Not Available Not Available No t Available oxybutynin chloride ER 10 mg tablet,exten ded release 24 hr TAKE 1 TABLET BY MOUTH EVERY DAY active Not Available Not Available No t Available diltiazem CD 180 mg capsule,exte nded release 24 hr Take 1 capsule every day by oral route. 11/09 completed Not Available Not Available Not Available donepezil 10 mg tablet TAKE 1 TABLET BY MOUTH EVERY DAY AT BEDTIME active Not Available Not Available No t Available meloxicam 15 mg tablet TAKE 1 TABLET BY MOUTH EVERY DAY active Not Available Not Available No t Available cyanocobalam in (vit B-12) 1,000 mcg tablet TAKE 1 TABLET BY MOUTH ONCE A DAY active Not Available Not Available No t Available pantoprazole 40 mg tablet,delay ed release TAKE 1 TABLET BY MOUTH EVERY DAY active Not Available Not Available No t Available ibuprofen 400 mg tablet TAKE 1 TABLET BY MOUTH THREE TIMES DAILY 11/09 completed Not Available Not Available Not Available albuterol sulfate HFA 90 mcg/actuatio n aerosol inhaler INHALE 2 PUFFS BY MOUTH FOUR TIMES DAILY active Not Available Not Available No t Available diltiazem ER (XR/XT) 180 mg capsule,exte nded release 24 hr, controlled TAKE 1 CAPSULE BY MOUTH DAILY active Not Available Not Available No t Available oxycodone 5 mg tablet TAKE 1 TABLET BY MOUTH EVERY 6 HOURS NEEDED FOR SEVERE PAIN 11/09 completed Not Available Not Available Not Available memantine 10 mg tablet TAKE 1 TABLET BY MOUTH TWICE DAILY active Not Available Not Available No t Available Flovent HFA 110 mcg/actuatio n aerosol inhaler INHALE 2 PUFFS BY MOUTH TWICE DAILY active Not Available Not Available No t Available atorvastatin 11/09 completed Not Available Not Available Not Available meloxicam 11/09 completed Not Available Not Available Not Available donepezil 11/09 completed Not Available Not Available Not Available pantoprazole 11/09 completed Not Available Not Available Not Available Vitamin B12 active Not Available Not A vailable Not Available oxybutynin 11/09 completed Not Available Not Available Not Available memantine 11/09 completed Not Available Not Available Not Available Vitals Date Recorded Respiratory rate Heart rate Body temperature Oxygen saturation Oxygen saturation in Arterial blood by Pulse oximetry Systolic blood pressure Diastolic blood pressure Provider Name and Address Organization Details Last Updated DateTime 3 18 /min 87 /min 98.6 [degF] 98 % 98 % 124 mm[Hg] 78 mm[Hg] Not Available [facility] 3 13:57:13 Social History Question Answer Notes LastModified by Organizat ion Details LastModified Time Tobacco Smoking Status Former Smoker SHONA Barker [address], [place], [address], [place] [facility] 11/09/2022 13:53:38 Do You Have An Advance Directive? No Information not available 11/09/2022 What Is Your Code Status? Full Code [email or web address] Information not available 11/09/2022 Fall Risk: Do You Feel Unsteady When Standing Or Walking? Yes [email or web address] Information not available 11/09/2022 Excessive Alcohol Or Drug Use No [email or web address] Information not available 11/09/2022 Does This Patient Have A PCP? Yes [email or web address] Information not available 11/09/2022 Has The Patient Seen Their PCP In The Past 6 Months? Yes [email or web address] Information not available 11/09/2022 Is This Patient In Hospice? No [email or web address] Information not available 11/09/2022 ADL: Do You Need Help With Daily Activities Such As Bathing, Preparing Meals, Dressing, Or Cleaning? Yes (Z74.1) [email or web address] Information not available 11/09/2022 Social Support: Do You Feel Safe? Yes [email or web address] Information not available 11/09/2022 What Is Your Housing Situation Today? I Have Housing [email or web address] Information not available 11/09/2022 Sex: Unknown Functional Status Question Answer Note LastModified by Organizat ion Details LastModified Time Do you use any illicit or recreational drugs? No [email or web address] Information not available 11/09/2022 What is your level of alcohol consumption? None Information not available 11/09/2022 Mental Status None recorded. Family History Relationship Description Onset Age of this Age Resolved Age Notes LastModified by Organization Details LastModified Time Father Coronary arterioscler osis Not available 11/09 13:52:56 Medical History Condition Response Diabetes N Coronary Artery Disease N CHF N Parkinson's Disease N Cancer N Dementia Y Stroke N COPD N Depression N Hypothyroidism N Asthma Y High Cholesterol Y Rheumatoid Arthritis N Pulmonary Embolism N Hypertension Y A-fib N Osteoporosis N Kidney Disease N Gynecological HistoryNo gynecological history recorded. Obstetrics History GPAL:G 0 P 0 0 0 0 Past Encounters Encounter ID Performer Location Encounter Start Date Encounter Closed Date Diagnosis/Indication Diagnosis SNOMED-CT Code Diagnosis ICD10 Code Diagnosis Note [id number] SHONA Barker [facility] [address] [facility] [address] 11/09/2022 13:49:31 11/11/2022 19:41:23 Essential hypertension [id number] I10 Status of condition: Chronic. Testing/Re sults: BP 124/78 on scene. Discussion : BP controlled on current medication regimen. continue current meds. Plan, Medication Management & Follow-up recommenda tions:foll ow up with pcp as scheduled. go to the ER with worsening symptoms cp, sob, dizziness, weakness, Hs, edema, vision changes. Closed injury of head 45 [id number] 06 S09.90XA Status of condition: Acute. Testing/Re sults: N/A Discussion :due to unwitnesse d fall, s/p head injury, she is symptomati c with c spine tenderness and occipital SALINAS. advised evaluation in the ER to r/o fracture. pt and her daughter agree with plan. Plan, Medication Management & Follow-up recommenda tions:pt was transporte d by EMS to the ER.attempt ed to call expect to [facility] ER twice, no answer. Health Concerns Section Related Observation LastModified by Organization Detai ls LastModified Time None Recorded Concern Status LastModified by Organization Details LastModified Time None Recorded Advance Directives Directive N: Payers Insurance Date Sequence Insurance Name Policy Number Policy Vilchis Covered Member ID Vilchis Member ID Guarantor Name 11/11/2022 1 [place]: [employer] Mely Noel [id number] Mely Trevino 11/11/2022 1 [facility] (MEDICARE REPLACEMENT/A DVANTAGE - PPO) [id number] Mely Noel [id number] Mely Trevino 11/11/2022 1 [facility] (MEDICARE REPLACEMENT/A DVANTAGE - PPO) [id number] Mely Trveino Noel [id number] Mely Trevino 11/11/2022 1 [facility] (MEDICARE REPLACEMENT/A DVANTAGE - PPO) [id number] Mely Trevino Noel [id number] Mely Trevino 11/09/2022 2 [place] [facility] Mely Noel [id number] Mely Trevino 11/09/2022 1 *SELF PAY* Mely Trevino [id number] Mely Trevino Notes Date Note Type Note Provider Name and Address Organization Details Recorded Time 11/09/2022 text/html 77 y/o female new to and to provider with hx of Asthma, HTN, hyperlipidemia, Alzheimer's, OA, GERD, over active bladder, incontinence. pt reports she fell out of bed during the night. she is unsure how it happened but she struck her head, she thinks possibly on the wall. she states she pulled herself back up into bed and stayed there until her daughter came in this morning to wake her. she c/o neck pain and occipital SALINAS. no nausea, vomiting, diarrhea, blurry vision. she denies any cp, sob, dizziness. no skin rash or lacerations. she denies LOC. she took tylenol this afternoon for pain. pain is worse with movement and to touch. SHONA Barker [address], [place], [address], [place] [facility] 11/09/2022 15:11:05 OBGyn Episode No OBEpisode recorded.
--- OUTSIDE RECORDS SUMMARY | 2024-12-29 08:38 | XMS_ITS | Clinical Summary ---
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
== END 2024-12-29 09:21 | disposition home or self-care (01) ==
LOC: HO.ENCR 08:31
PROVIDERS: PCP Internal Medicine; Visit Provider Student in an Organized Health Care Education/Training Program
DX: E21.3 Hyperparathyroidism, unspecified (principal)
CPT/HCPCS: 99204

== ENCOUNTER → 2024-12-29 08:31 | Outpatient (BNVA) | payer MEDICARE, MEDICAID, SELFPAY | PROVIDERS: PCP Internal Medicine; Visit Provider Student in an Organized Health Care Education/Training Program | DX: E21.3 Hyperparathyroidism, unspecified (principal) | CPT/HCPCS: 99202 ==

== ENCOUNTER 2025-02-23 13:54 | Outpatient (REF) | payer MEDICARE, MEDICAID, SELFPAY ==
--- NOTE | ~2025-02-23 | US_ITS ---
EXAMINATION: US RETROPERITONEAL LIMITED (RENAL ONLY) CLINICAL INFORMATION: Hyperparathyroidism. Concerning kidney stones.. COMPARISON: Correlated to ultrasound abdomen dated January 09, 2022. TECHNIQUE: Real-time ultrasound kidneys using grayscale technique. FINDINGS: RIGHT KIDNEY: 9 x 4 x 4 cm (SAG x AP x TRV). Normal echotexture. Renal cortical thinning. No hydronephrosis. No gross solid or cystic lesion detected. LEFT KIDNEY: 9 x 4 x 4 cm (SAG x AP x TRV). Normal echotexture. Renal cortical thinning. No hydronephrosis. There is a 1.3 cm exophytic anechoic lesion without septations or flow on color Doppler interrogation. There is a 0.6 cm anechoic lesion without septations or flow on color Doppler interrogation. US/US renal BI IMPRESSION: Simple cyst, left kidney. No gross nephrolithiasis. No hydronephrosis.. Electronically signed by: Erik Avalos MD 02/23/2025 03:02 PM EDT
--- OUTSIDE RECORDS SUMMARY | 2025-02-23 14:49 | XMS_ITS | Clinical Summary ---
Author Organization [facility] [employer] [facility] ity Address [address] [place] [address] Care Team Providers Care Director Agency & Strategic Partnerships Name Role Phone Glendy Mcmahon MD Primary Care Provider [phone] Social History Tobacco Use Types Packs/Day Years [...] nts (1 - 1-dose 75+ series) 2019 Falls Risk Assessment 05/30/2022 Osteoporosis Screening (Bone Density Screening) 05/30/2022 Social Influencers of Health Screening 05/30/2022 COVID-19 Vaccine ( - 2023-2 5 season) 2024 Depression Screening 07/01/2024 Influenza Vaccine (#1) 2025 HIB Vaccines Aged Out No longer [...] Documents on File Type Date Recorded 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
== END 2025-02-23 13:55 | disposition home or self-care (01) ==
LOC: HO.US 13:54
PROVIDERS: PCP Internal Medicine; Visit Provider Student in an Organized Health Care Education/Training Program
DX: E21.3 Hyperparathyroidism, unspecified (principal)
CPT/HCPCS: 76775

== ENCOUNTER → 2025-02-23 13:58 | Outpatient (BNV) | payer MEDICARE, MEDICAID, SELFPAY | PROVIDERS: PCP Internal Medicine; Visit Provider Radiology Diagnostic Radiology | DX: N28.1 Cyst of kidney, acquired (principal) | CPT/HCPCS: 76775 ==

== ENCOUNTER 2025-03-08 11:55 | Outpatient (REF) | payer MEDICARE, MEDICAID, SELFPAY ==
[2025-03-08 12:44] LABS: Parathyroid Hormone Intact 124.3 pg/mL (8.7-77.1)
[2025-03-08 12:51] LABS: Alanine Aminotransferase 18 U/L (0-31); Albumin Level 4.6 g/dL (3.5-5.0); Alkaline Phosphatase 97 U/L (39-117); Anion Gap 12 (12-20); Aspartate Amino Transferase 29 U/L (5-31); Blood Urea Nitrogen 18 mg/dL (9-16); Calcium 9.9 mg/dL (8.4-10.2); Carbon Dioxide 27 mmol/L (22-29); Chloride 109 mmol/L (96-108); Cholesterol 123 mg/dL (<200); Estimated Glomerular Filt Rate 51; HDL Cholesterol 45 mg/dL (>40); Potassium 4.2 mmol/L (3.3-5.1); Sodium 144 mmol/L (135-145); Total Protein 7.5 g/dL (6.5-8.0); Triglycerides 80 mg/dL (<150)
[2025-03-08 13:00] LABS: Thyroid Stimulating Hormone 1.47 uIU/mL (0.32-4.0)
[2025-03-08 13:12] LABS: Folate 8.0 ng/mL (> or = 4.0); Vitamin B12 1565 pg/mL (200-900)
--- OUTSIDE RECORDS SUMMARY | 2025-03-08 14:30 | XMS_ITS | Clinical Summary ---
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
== END 2025-03-08 11:56 | disposition home or self-care (01) ==
LOC: HO.LAB 11:55
PROVIDERS: PCP Internal Medicine; Visit Provider Internal Medicine
DX: E21.2 Other hyperparathyroidism (principal); E78.00 Pure hypercholesterolemia, unspecified; F02.80 Dementia in other diseases classified elsewhere, unspecified severity, without behavioral disturbance, psychotic disturbance, mood disturbance, and anxiety; F32.9 Major depressive disorder, single episode, unspecified; I10 Essential (primary) hypertension; M54.50 Low back pain, unspecified
CPT/HCPCS: 36415; 80053; 80061; 82306; 82607; 82746; 83970; 84443

== ENCOUNTER 2025-03-12 11:21 | Outpatient (REF) | payer MEDICARE, MEDICAID, SELFPAY ==
--- NOTE | ~2025-03-12 | MM_ITS ---
EXAMINATION: DXA BONE DENSITY EXTREMITY HISTORY: E21.3 - Hyperparathyroidism, unspecified TECHNIQUE: [employer] Dual energy absorptiometry (DEXA) of the lumbar spine, total left hip, femoral neck, and distal radius was performed. COMPARISON: There are no prior studies for comparison. FINDINGS: The bone mineral density of the lumbar spine is 1.001 g/cm2, corresponding to a T-score of -1.5, and a Z-score of 0.4. This is indicative of osteopenia. The bone mineral density of the left total hip is 0.812 g/cm2, corresponding to a T-score of -1.6, and a Z-score of 0.5. This is indicative of osteopenia. The bone mineral density of the left femoral neck is 0.614 g/cm2, corresponding to a T-score of -3.1, and a Z-score of -0.8. This is indicative of osteoporosis. The bone mineral density of the distal radius is 0.726 g/cm2, corresponding to a T-score of -1.7, and a Z-score of 1.1. This is indicative of osteopenia. FRACTURE RISK: The FRAX index suggests a risk of major osteoporotic fracture of 15.9%, and of hip fracture 6.5%. MM/XR DEXA appendicular skeleton IMPRESSION: Based on bone mineral density, and according to World Health Organization (WHO) criteria, the diagnosis is consistent with osteoporosis. Statistically, 68% of repeat scans fall within 1 SD (+/- 0.010 g/cm2 for AP spine L1-L4) and 1 SD (+/- 0.012 g/cm2 for femur total) FRAX is a trademark of the [employer] [place] [employer] Met[employer] Disease, a World Health Organization (WHO) Collaborating Center. Electronically signed by: Jose Maria Das MD 03/12/2025 12:13 PM EDT
== END 2025-03-12 11:22 | disposition home or self-care (01) ==
LOC: HO.MAMMO 11:21
PROVIDERS: Visit Provider Student in an Organized Health Care Education/Training Program
DX: Z12.31 Encounter for screening mammogram for malignant neoplasm of breast (principal); E21.3 Hyperparathyroidism, unspecified
CPT/HCPCS: 77081

== ENCOUNTER → 2025-03-12 11:30 | Outpatient (BNV) | payer MEDICARE, MEDICAID, SELFPAY | PROVIDERS: Visit Provider Radiology Diagnostic Radiology | DX: E28.39 Other primary ovarian failure (principal) | CPT/HCPCS: 77081 ==

== ENCOUNTER 2025-03-23 11:46 | Outpatient (REF) | payer MEDICARE, MEDICAID, SELFPAY ==
--- OUTSIDE RECORDS SUMMARY | 2025-03-23 14:39 | XMS_ITS | Clinical Summary ---
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
== END 2025-03-23 11:47 | disposition home or self-care (01) ==
LOC: HO.10HDL 11:46
PROVIDERS: Visit Provider Internal Medicine
DX: Z13.89 Encounter for screening for other disorder (principal)
CPT/HCPCS: 36415; 86481